=== PATIENT | female | born 1975 | race Caucasian/White ===

== ENCOUNTER 2018-05-08 17:09 | Emergency (ER) | payer OTHER ==
[~2018-05-08] VITALS: Wt 108.9 kg
[~2018-05-08 17:09] MED LIST: ATIVAN1 MG PO; CLINDAMYCIN150 MG PO; DIFLUCAN150 MG PO; EES400 MG PO; LISINOPRIL10 MG PO; METFORMIN1000 MG PO; NKHM; NORCO 325 MG-51 TAB PO; PERCOCET 325 MG1 TA6 PO; SIMVASTATIN10 MG PO; TAPAZOLE10 MG PO; TOBREX OPHTH S2.5 ML OPH; VICODIN 5/500 505 MG PO; VICODIN ES 7501 TAB PO; VICTOZA6 MG/ML SC; ZITHROMAX250 MG PO
[2018-05-08] MEDS ORDERED: ACYCLOVIR800 MG PO (18:29)
[2018-05-08] MEDS ORDERED: LIDEX 0.05% CRE15 GM T (18:29)
[2018-05-08] MEDS ORDERED: NORCO 5-325 TA1 EACH PO (18:29)
== END 2018-05-08 18:36 | disposition home or self-care (01) ==
LOC: ED 17:09
DX: B02.9 Zoster without complications (principal); Z88.0 Allergy status to penicillin

== ENCOUNTER 2020-02-23 13:46 | Emergency (ER) | payer OTHER ==
[~2020-02-23] VITALS: Ht 175.2 cm; Wt 104.3 kg
[~2020-02-23 13:46] MED LIST changes: +ACYCLOVIR800 MG PO; +LIDEX 0.05% CRE15 GM T; +NORCO 5-325 TA1 EACH PO
[2020-02-23 14:40] LABS: BILIRUBIN Negative (Negative); BLOOD Negative (Negative); CLARITY Clear (Clear); COLOR Yellow (Yellow); GLUCOSE 3+ (Negative); KETONE Negative (Negative); LEUKO ESTERASE Negative (Negative); NITRITE Negative (Negative); SPECIFIC GRAVITY >= 1.030 (1.001-1.030); UROBILINOGEN 0.2 E.U./dl (0.0-1.0)
[2020-02-23 14:46] LABS: BACTERIA TRACE; RBC 0-2 rbc/hpf (0-2); WBC 0-2 wbc/hpf (0-5)
[2020-02-23 14:48] LABS: BASO # 0.1 10*3/uL (0.0-0.1); BASO % 0.6 % (0.0-1.0); EOS # 0.2 10*3/uL (0.0-0.4); EOS % 1.9 % (1.0-4.0); HEMATOCRIT 45.8 % (37.0-47.0); LYMPH # 2.2 10*3/uL (1.3-4.4); LYMPH % 25.9 % (27.0-41.0); MEAN CELL VOLUME 82.2 fl (81.0-99.0); MEAN CORPUSCULAR HGB 27.6 pg (27.0-31.0); MEAN CORPUSCULAR HGB CONC 33.6 g/dl (33.0-37.0); MEAN PLATELET VOLUME 9.6 fl (9.6-12.3); MONO # 0.6 10*3/uL (0.1-1.0); MONO % 7.4 % (3.0-9.0); NEUT # 5.4 10*3/uL (2.3-7.9); PLATELET COUNT AUTOMATED 280 10*3/uL (130-400); RED BLOOD COUNT 5.57 10*6/uL (4.10-5.10); RED CELL DISTRI WIDTH 12.4 % (0-14.5); WHITE BLOOD COUNT 8.5 10*3/uL (4.8-10.8)
[2020-02-23 15:06] LABS: ALBUMIN 3.2 gm/dl (3.1-4.5); ALKALINE PHOSPHATASE 84 U/L (45-117); BUN 10 mg/dl (7-24); CHLORIDE 102 mmol/L (98-107); CREATININE 0.72 mg/dL (0.55-1.02); POTASSIUM 4.1 mmol/L (3.5-5.1); SGOT/AST 13 IU/L (3-35); SGPT/ALT 32 U/L (12-78); SODIUM 133 mmol/L (136-145); TOTAL PROTEIN 6.8 gm/dL (6.4-8.2)
== END 2020-02-23 18:36 | disposition home or self-care (01) ==
LOC: ED 13:46
PROVIDERS: Physician Assistant
DX: M54.5 Low back pain (principal); E11.9 Type 2 diabetes mellitus without complications

== ENCOUNTER → 2020-08-10 | Outpatient (CLI) | payer OTHER | END | disposition home or self-care (01) | LOC: US 08-07 15:30 | PROVIDERS: ATTEND Family Medicine | DX: E04.1 Nontoxic single thyroid nodule (principal); Z86.39 Personal history of other endocrine, nutritional and metabolic disease ==